=== PATIENT | female | born 2000 | race Caucasian/White ===

== ENCOUNTER 2019-01-28 10:56 | Emergency (ER) | payer OTHER ==
[~2019-01-28] VITALS: Ht 170.2 cm; Wt 63.6 kg
[~2019-01-28 10:56] MED LIST: BACTRIM DS TAB1 EACH PO; BIRTH CONTROL; CYCLOBENZAPRINE10 M1 PO; MOTRIN IB200 M2 PO; PREDNISONE20 M1 PO
[2019-01-28] MEDS ORDERED: ELINEST PO (11:09)
[2019-01-28 11:49] LABS: ALBUMIN 4.3 g/dL (3.5-5.0); POTASSIUM 3.9 mmol/L (3.5-5.1)
[2019-01-28 11:50] LABS: CALCIUM 9.5 mg/dL (8.3-10.5)
[2019-01-28 11:51] LABS: TOTAL PROTEIN 7.3 g/dL (6.4-8.3)
[2019-01-28 11:53] LABS: TOTAL BILIRUBIN 0.6 mg/dL (0.2-1.2)
[2019-01-28 12:01] LABS: EOS % 0.8 % (0.1-4.0); HEMATOCRIT 36.2 % (35.0-45.0); HEMOGLOBIN 12.4 g/dL (12.0-15.0); LYMPH# 1.4 (1.20-3.40); MEAN CELL VOLUME 89 fl (78-95); MEAN CORPUSCULAR HEMOGLOBIN 31 pg (26-32); MEAN CORPUSCULAR HGB CONC 34 g/dL (33-37); MEAN PLATELET VOLUME 10.3 fl (7.4-10.4); MONO # 0.3 (0.10-0.60); NEU # 3.2 (1.40-6.50); PLATELET COUNT 234 K/mm3 (130-400); RED BLOOD COUNT 4.06 M/mm3 (4.10-5.30); RED CELL DISTRIBUTION WIDTH 11.4 % (11.5-14.5)
[2019-01-28] MEDS ORDERED: PROTONIX20 M1 PO (12:14)
[2019-01-28] MEDS ORDERED: ZOFRAN4 M2 PO (12:44)
[2019-01-28 12:52] VITALS: BP 112/62
== END 2019-01-28 12:48 | disposition home or self-care (01) ==
LOC: ED 10:56
PROVIDERS: Nurse Practitioner Primary Care
DX: K92.0 Hematemesis (principal); Z98.890 Other specified postprocedural states
CPT/HCPCS: C9113; J2405